=== PATIENT | female | born 1935 | race Caucasian/White ===

== ENCOUNTER → 2016-12-01 | Outpatient (REF) | payer MEDICARE, MEDICAID ==
[~2016-12-01] MED LIST: /PANT40TA OR; /PREG50CA PO; /WARF25TA PO; ACET-654 PO; ANASTROZOLE PO; ARIM1TAB4 PO; CALCI50TA PO; DOCU10ELUD PO; MECL25TA2 OR; METAPOW PO; PERCOCET PO; VITMTA PO; WARF5VL PO; XGEVINJ INJ; [UNRECOGNIZED DRUG - OTHER]
== END ==
LOC: M LAB REF 16:36
PROVIDERS: ATTEND Internal Medicine Medical Oncology
DX: C50.812 Malignant neoplasm of overlapping sites of left female breast (principal); C79.51 Secondary malignant neoplasm of bone

== ENCOUNTER → 2016-12-09 | Outpatient (CLI) | payer MEDICARE, MEDICAID ==
[~2016-12-09] MED LIST changes: +GASTROGRAFIN SOLUTION 30ML (Q9963) As Ordered ONE; +ISOVUE-370 76% 100ML VIAL (Q9967) As Ordered ONE
--- NOTE | 2016-12-09 19:16 | REP ---
CT CHEST WITH IV CONTRAST: CT chest was performed with the intravenous administration of 100 mL of Isovue-370. Sagittal and coronal reconstruction images are performed. COMPARISON: 10/07/2013. There are 3 cm nodular opacities in the left lower lobe which are stable. No new suspicious nodules are seen in either lung. Pleural thickening superiorly on the right, posterolaterally is stable. No suspicious adenopathy is seen in the mediastinal or hilar regions, nor in the axillary regions. There is no thoracic aortic aneurysm with mild scattered atherosclerotic calcification present. The heart is not significantly enlarged. There is no pleural or pericardial effusion. 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 Diffusely sclerotic right scapula and sclerotic changes in the right 5th, 6th posterior ribs and the posterior right 5th and 6th ribs is all unchanged. IMPRESSION: Stable CT exam with no new adenopathy or other evidence of metastatic disease. Signed by Hi Otero MD 12/09/2016 08:39 P
--- NOTE | 2016-12-09 19:42 | REP ---
CT ABDOMEN AND PELVIS WITH AND WITHOUT IV CONTRAST: TECHNIQUE: Axial noncontrast images through the abdomen followed by contrast-enhanced images through the abdomen and pelvis using 100 mL Isovue 370 intravenous contrast material, with coronal and sagittal reformations. The liver demonstrates a 1.4 cm cyst near the gallbladder fossa. The patient has had a cholecystectomy and there is prominent common bile duct as would be expected postsurgically in a patient of this age. No definite calculus is seen in the common bile duct. The maximum diameter of the common bile duct is approximately 1.5 cm and it appears to taper gradually as it courses distally to the ampulla of Vater. The spleen and left adrenal are unremarkable. The right adrenal demonstrates two nodules, one superiorly and one inferiorly which are unchanged since the prior CT of 09/22/2014 consistent with adenomas. The pancreas demonstrates no mass. The kidneys demonstrate no mass and no hydronephrosis or nephrolithiasis. Mild atherosclerotic calcifications are seen of the abdominal aorta without aneurysm. There is no significant adenopathy in the abdomen or pelvis. There is no free air or free fluid. There is no bowel wall thickening. There is diverticulosis of the colon without evidence of acute diverticulitis. No pelvic mass is seen. The uterus and ovaries are grossly unremarkable. The urinary bladder is mildly distended and appears unremarkable. There are degenerative changes of the spine without definite suspicious osseous abnormality. Metallic prostheses are noted of bilateral hips. IMPRESSION: Status post cholecystectomy with prominent caliber of biliary system. Liver cyst. Chronic diverticulosis. Two right adrenal adenomas are stable. No new mass or adenopathy. No free fluid. Signed by Hi Otero MD 12/09/2016 08:39 P
== END ==
LOC: M RAD 15:14
PROVIDERS: ATTEND Internal Medicine Medical Oncology
DX: C50.919 Malignant neoplasm of unspecified site of unspecified female breast (principal)
CPT/HCPCS: 71260; 74178; Q9963; Q9967

== ENCOUNTER → 2017-04-24 | Outpatient (REF) | payer MEDICARE, MEDICAID ==
[~2017-04-24] MED LIST changes: -GASTROGRAFIN SOLUTION 30ML (Q9963) As Ordered ONE; -ISOVUE-370 76% 100ML VIAL (Q9967) As Ordered ONE
== END ==
LOC: M LAB REF 18:37
PROVIDERS: ATTEND Internal Medicine Medical Oncology
DX: C50.919 Malignant neoplasm of unspecified site of unspecified female breast (principal)

== ENCOUNTER → 2017-09-14 | Outpatient (REF) | payer MEDICARE, MEDICAID | LOC: M LAB REF 15:37 | PROVIDERS: ATTEND Internal Medicine Medical Oncology | DX: C50.919 Malignant neoplasm of unspecified site of unspecified female breast (principal) ==

== ENCOUNTER → 2018-01-30 | Outpatient (CLI) | payer MEDICARE, MEDICAID | LOC: M PLARAD 08:45 | DX: C50.812 Malignant neoplasm of overlapping sites of left female breast (principal); C79.51 Secondary malignant neoplasm of bone | CPT/HCPCS: 78815 ==

== ENCOUNTER → 2019-02-06 | Outpatient (CLI) | payer MEDICARE, MEDICAID ==
[~2019-02-06] MED LIST changes: -/PANT40TA OR; -/PREG50CA PO; -/WARF25TA PO; +AMLO10TA5 PO; +AMLO2.5T3 PO; +AMLO25TA PO; +ANAS1TAB2 PO; +CALC1CHW PO; +CALCCHW4 PO; +COUM1TAB18 PO; -DOCU10ELUD PO; +DOCU5LIQ PO; +LYRI50CA PO; +OXYC1TAB23 PO; +PANT40TA3 PO; -PERCOCET PO; +PROT1TAB2 OR
--- NOTE | 2019-02-08 10:11 | REP ---
PET/CT: History: Restaging exam. History of metastatic breast carcinoma diagnosed in the year 1999. Comparisons: Comparison PET-CT study is from January 30, 2018. There is a comparison PET-CT study from January 14, 2016 as well. TECHNIQUE: 50 minutes following the intravenous injection of a 8.20 mCi dose of F-18 FDG, three-dimensional PET scintigraphy is acquired from the skull base to the proximal thighs. Triplanar noncontrast CT scanning is acquired through the same anatomic range for attenuation correction, and image registration with scan parameters optimized to minimize radiation exposure to the patient. PET scintigraphy and CT datasets were fused and displayed on a workstation with multiplanar and projection display capability. PET/CT Findings: Head and neck soft tissues remain unremarkable. No abnormal hypermetabolic uptake is seen. 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 There is no abnormal hypermetabolic uptake seen within the chest. In the abdomen and pelvis, there is normal distribution of tracer. There is persistent hypermetabolic uptake along a ventral hernia repair in a linear fashion which is essentially unchanged from multiple previous exams consistent with some degree of chronic inflammation. Maximum standard uptake value here is 12.2. This is unchanged as well having measured 12.6 and 2015 and 12.2 and 2017. Exam is otherwise unremarkable. Impression: No new abnormal hypermetabolic uptake. Persistent uptake at the site of ventral hernia repair in the anterior abdominal wall unchanged since the 2015 prior study, most likely some degree of chronic inflammatory change. Electronically Signed by Sebastian Rehman MD 02/08/2019 10:40 A
== END ==
LOC: M PLARAD 11:18
PROVIDERS: ATTEND Internal Medicine Hematology & Oncology
DX: C50.812 Malignant neoplasm of overlapping sites of left female breast (principal)
CPT/HCPCS: 78815; A9552

== ENCOUNTER → 2020-07-21 | Outpatient (CLI) | payer MEDICARE, MEDICAID ==
[~2020-07-21] MED LIST changes: -AMLO10TA5 PO; +AMLO1TAB25 PO; +PANT40TA29 PO; -PANT40TA3 PO
[2020-07-21 13:11] VITALS: BP 122/82
--- NOTE | 2020-07-24 14:10 | REP ---
STEREOTACTIC LEFT BREAST BIOPSY The procedure was performed under the general supervision of Dr. Rehman. HISTORY: The patient has a history of a left breast mass seen on a previous mammogram from [facility] performed on 04/30/2020. The risks and benefits of the procedure were explained to the patient and informed consent was obtained. PROCEDURE: A caudocranial approach was utilized. The mass was localized using stereotactic mammographic guidance. The skin was prepped and draped in a sterile fashion. 1% Lidocaine was used as a local anesthetic. Using mammographic guidance, a 10-gauge suction-assisted Mammotome needle was inserted and 10 core biopsy samples were obtained. A marker clip (HydroMARK 3) was inserted at the biopsy site. The patient tolerated the procedure well and there were no immediate complications. After the appropriate amount of monitored convalescence, the patient was discharged from the department. ERMA
--- NOTE | 2020-07-24 14:12 | REP ---
SPECIMEN RADIOGRAPHY LEFT BREAST: 2-VIEWS HISTORY: Stereotactic needle biopsy for asymmetric density, left breast. No microcalcifications in vivo. COMPARISON MAMMOGRAPHY: 04/30/2020. FINDINGS: Specimen radiography shows no microcalcifications or other distinct features. No microcalcifications were expected. IMPRESSION: Specimen radiography left breast post stereo. MTDD
--- NOTE | 2020-07-24 14:13 | REP ---
DIGITAL DIAGNOSTIC UNILATERAL LEFT BREAST MAMMOGRAPHY: 2-VIEWS HISTORY: Marker clip placement views. Stereotactic needle biopsy. COMPARISON MAMMOGRAPHY: 04/30/2020. FINDINGS: Craniocaudal and mediolateral views demonstrate the needle biopsy marker clip within the asymmetric density in the left breast centrally. There is some postbiopsy soft tissue swelling medial and inferior to the clip. IMPRESSION: Needle biopsy marker clip in good position. MTDD
== END ==
LOC: M WHCPRO 10:38
PROVIDERS: ATTEND Internal Medicine Hematology & Oncology
DX: D48.62 Neoplasm of uncertain behavior of left breast (principal)

== ENCOUNTER → 2021-05-13 | Outpatient (CLI) | payer MEDICARE, MEDICAID | LOC: M LABSMTC 13:44 | PROVIDERS: ATTEND Pediatrics | DX: Z20.822 Contact with and (suspected) exposure to COVID-19 (principal) ==

== ENCOUNTER → 2021-05-17 | Outpatient (CLI) | payer MEDICARE | LOC: M PLARAD 15:17 | PROVIDERS: ATTEND Internal Medicine Hematology & Oncology | DX: C50.912 Malignant neoplasm of unspecified site of left female breast (principal); C79.51 Secondary malignant neoplasm of bone; C50.812 Malignant neoplasm of overlapping sites of left female breast; R59.0 Localized enlarged lymph nodes | CPT/HCPCS: 78815; A9552 ==

== ENCOUNTER → 2023-02-22 | Outpatient (CLI) | payer MEDICARE, MEDICAID | LOC: M PLARAD 11:35 | PROVIDERS: ATTEND Internal Medicine Hematology & Oncology | DX: C50.912 Malignant neoplasm of unspecified site of left female breast (principal); C79.51 Secondary malignant neoplasm of bone; U07.1 COVID-19; C50.812 Malignant neoplasm of overlapping sites of left female breast; K21.9 Gastro-esophageal reflux disease without esophagitis; M25.561 Pain in right knee; M81.0 Age-related osteoporosis without current pathological fracture; S72.302A Unspecified fracture of shaft of left femur, initial encounter for closed fracture; S92.252A Displaced fracture of navicular [scaphoid] of left foot, initial encounter for closed fracture; X58.XXXA Exposure to other specified factors, initial encounter; Y92.89 Other specified places as the place of occurrence of the external cause; Y93.89 Activity, other specified; Y99.8 Other external cause status | CPT/HCPCS: 78815; A9552 ==

== ENCOUNTER → 2023-07-17 | Outpatient (REF) | payer MEDICARE, MEDICAID ==
[2023-07-17 18:07] LABS: HEMATOCRIT 43.1 % (36.0-47.0); HEMOGLOBIN 13.8 g/dl (12.0-15.5); MEAN CORPUSCULAR VOLUME 93.7 fl (80.0-96.0); PLATELET COUNT, AUTOMATED 230 10^3/uL (150-450); WHITE BLOOD COUNT 6.5 10^3/uL (4.0-10.0)
[2023-07-17 18:53] LABS: IRON (FE) 56 UG/DL (50-170)
[2023-07-17 19:25] LABS: ALBUMIN 3.3 G/DL (3.2-5.2); ALKALINE PHOSPHATASE 114 U/L (46-116); ALT/SGPT 18 U/L (7.0-40); AST/SGOT 17 U/L (<34); BILIRUBIN,TOTAL 0.4 MG/DL (0.3-1.2); BLOOD UREA NITROGEN 14 MG/DL (9-23); CALCIUM LEVEL 9.3 MG/DL (8.3-10.6); CARBON DIOXIDE LEVEL 32 MMOL/L (20-31); CHLORIDE LEVEL 105 MMOL/L (98-107); CREATININE FOR GFR 0.76 MG/DL (0.55-1.30); FREE T4 0.91 NG/DL (0.89-1.76); GLOMERULAR FILTRATION RATE > 60.0 (>32); GLUCOSE, FASTING 83 MG/DL (74-106); MAGNESIUM LEVEL 2.1 MG/DL (1.8-2.4); POTASSIUM SERUM 4.2 MMOL/L (3.5-5.1); SODIUM LEVEL 142 MMOL/L (136-145); THYROID STIMULATING HORMONE 3.529 uIU/ML (0.55-4.78); TOTAL PROTEIN 6.3 G/DL (5.7-8.2)
== END ==
LOC: M SFHCCLAY 13:29
PROVIDERS: ATTEND Family Medicine
DX: I10 Essential (primary) hypertension (principal); K21.9 Gastro-esophageal reflux disease without esophagitis; D64.9 Anemia, unspecified; R42 Dizziness and giddiness

== ENCOUNTER → 2023-08-11 | Outpatient (CLI) | payer MEDICARE, MEDICAID | LOC: M SLEEP HO 10:51 | PROVIDERS: ATTEND Family Medicine | DX: R53.82 Chronic fatigue, unspecified (principal) ==

== ENCOUNTER → 2024-03-08 | Outpatient (CLI) | payer MEDICARE, MEDICAID ==
[~2024-03-08] MED LIST changes: +E-Z-GAS II EFFERVESCENT PACKET (SODIUM BICARB./CITRIC ACID/SIMETHICONE) As Ordered ONE; +E-Z-HD 98% w/w 340GM SUSP BTL As Ordered ONE; +E-Z-PAQUE 96% w/w SUSP 176GM BTL As Ordered ONE
== END ==
LOC: M RAD 09:14
PROVIDERS: ATTEND Family Medicine
DX: R13.19 Other dysphagia (principal)

== ENCOUNTER → 2024-06-11 | Outpatient (REF) | payer MEDICARE, MEDICAID ==
[~2024-06-11] MED LIST changes: -E-Z-GAS II EFFERVESCENT PACKET (SODIUM BICARB./CITRIC ACID/SIMETHICONE) As Ordered ONE; -E-Z-HD 98% w/w 340GM SUSP BTL As Ordered ONE; -E-Z-PAQUE 96% w/w SUSP 176GM BTL As Ordered ONE
[2024-06-11 17:35] LABS: HEMATOCRIT 32.5 % (36.0-47.0); HEMOGLOBIN 9.9 g/dl (12.0-15.5); MEAN CORPUSCULAR HEMOGLOBIN 28.3 pg (27.0-33.0); MEAN CORPUSCULAR HGB CONC 30.5 g/dl (32.0-36.5); MEAN CORPUSCULAR VOLUME 92.9 fl (80.0-96.0); PLATELET COUNT, AUTOMATED 393 10^3/uL (150-450); WHITE BLOOD COUNT 6.9 10^3/uL (4.0-10.0)
[2024-06-11 17:53] LABS: ALBUMIN 2.9 G/DL (3.2-5.2); ALKALINE PHOSPHATASE 90 U/L (46-116); ALT/SGPT 22 U/L (7.0-40); AST/SGOT 20 U/L (<34); BILIRUBIN,TOTAL 0.4 MG/DL (0.3-1.2); BLOOD UREA NITROGEN 15 MG/DL (9-23); CALCIUM LEVEL 8.9 MG/DL (8.3-10.6); CARBON DIOXIDE LEVEL 30 MMOL/L (20-31); CHLORIDE LEVEL 107 MMOL/L (98-107); CREATININE FOR GFR 0.71 MG/DL (0.55-1.30); FOLATE > 24.00 NG/ML (>5.4); GLOMERULAR FILTRATION RATE > 60.0 (>32); GLUCOSE, FASTING 102 MG/DL (74-106); IRON (FE) 12 UG/DL (50-170); POTASSIUM SERUM 4.9 MMOL/L (3.5-5.1); SODIUM LEVEL 141 MMOL/L (136-145); VITAMIN B12 LEVEL 1206 PG/ML (211-911)
== END ==
LOC: M SFHCCLAY 13:32
PROVIDERS: ATTEND Family Medicine
DX: K92.2 Gastrointestinal hemorrhage, unspecified (principal); D64.9 Anemia, unspecified

== ENCOUNTER → 2024-07-16 | Outpatient (REF) | payer MEDICARE, MEDICAID ==
[2024-07-16 17:36] LABS: HEMATOCRIT 39.8 % (36.0-47.0); HEMOGLOBIN 12.2 g/dl (12.0-15.5); MEAN CORPUSCULAR HEMOGLOBIN 27.7 pg (27.0-33.0); MEAN CORPUSCULAR HGB CONC 30.7 g/dl (32.0-36.5); MEAN CORPUSCULAR VOLUME 90.2 fl (80.0-96.0); PLATELET COUNT, AUTOMATED 270 10^3/uL (150-450); RED BLOOD COUNT 4.41 10^6/uL (4.00-5.40); WHITE BLOOD COUNT 6.4 10^3/uL (4.0-10.0)
== END ==
LOC: M SFHCCLAY 09:35
PROVIDERS: ATTEND Family Medicine
DX: D64.9 Anemia, unspecified (principal)

== ENCOUNTER → 2024-09-17 | Outpatient (REF) | payer MEDICARE, MEDICAID ==
[~2024-09-17] MED LIST changes: +BIMA01SOL OU; +CYAN500T20 PO; +OYST1TAB5 PO; +TIMO5DRO5 OS; +VESI5TAB2 PO; +[UNRECOGNIZED DRUG - CODE] IM
[2024-09-17 11:57] LABS: APPEARANCE, URINE CLEAR (CLEAR); BACTERIA, URINE AUTO NEGATIVE (NEGATIVE); BILIRUBIN, URINE AUTO NEGATIVE (NEGATIVE); BLOOD, URINE BLOOD NEGATIVE (NEGATIVE); COLOR, URINE YELLOW (YELLOW); GLUCOSE, URINE (UA) AUTO NEGATIVE (NEGATIVE); KETONE, URINE AUTO NEGATIVE (NEGATIVE); LEUKOCYTE ESTERASE, URINE AUTO TRACE (NEGATIVE); MUCUS, URINE SMALL (NEGATIVE); NITRITE, URINE AUTO NEGATIVE (NEGATIVE); PROTEIN, URINE AUTO NEGATIVE (NEGATIVE); RBC, URINE AUTO 2 /HPF (0-3); SPECIFIC GRAVITY URINE AUTO 1.013 (1.002-1.035); SQUAMOUS EPITHELIAL CELL UR AU 1 /HPF (0-6); UROBILINOGEN, URINE AUTO 0.2 mg/dL (0.0-2.0); WBC, URINE AUTO 1 /HPF (0-3)
== END ==
LOC: M SFHCCLAY 09:34
PROVIDERS: ATTEND Family Medicine
DX: N39.490 Overflow incontinence (principal)

== ENCOUNTER 2024-09-26 11:55 | Day surgery (SDC) | payer MEDICARE, MEDICAID ==
[~2024-09-26] VITALS: Ht 162.6 cm; Wt 83.9 kg
[2024-09-26 14:06] VITALS: TEMP 98.1
[2024-09-26 14:25] VITALS: BP 161/81; O2SAT 98
== END 2024-09-26 14:43 | disposition home or self-care (01) ==
LOC: M OPP 11:55
PROVIDERS: ATTEND Internal Medicine Gastroenterology
DX: K31.7 Polyp of stomach and duodenum (principal); K22.2 Esophageal obstruction; Q39.4 Esophageal web; I10 Essential (primary) hypertension; K21.9 Gastro-esophageal reflux disease without esophagitis; M19.90 Unspecified osteoarthritis, unspecified site; H40.9 Unspecified glaucoma; H35.30 Unspecified macular degeneration; Z85.3 Personal history of malignant neoplasm of breast; Z92.3 Personal history of irradiation; Z79.899 Other long term (current) drug therapy; Z80.0 Family history of malignant neoplasm of digestive organs; Z80.3 Family history of malignant neoplasm of breast

== ENCOUNTER → 2024-10-29 | Outpatient (REF) | payer MEDICARE, MEDICAID ==
[2024-10-29 16:56] LABS: BASO % 0.5 % (0.0-1.0); EOS # 0.2 10^3/uL (0.0-0.5); EOS % 2.6 % (0.0-3.0); HEMATOCRIT 44.6 % (36.0-47.0); HEMOGLOBIN 14.1 g/dl (12.0-15.5); LYMPH # 1.4 10^3/uL (1.5-5.0); LYMPH % 22.5 % (24.0-44.0); MEAN CORPUSCULAR HEMOGLOBIN 28.8 pg (27.0-33.0); MEAN CORPUSCULAR HGB CONC 31.6 g/dl (32.0-36.5); MONO # 0.8 10^3/uL (0.0-0.8); NEUTROPHILS # 3.8 10^3/uL (1.5-8.5); NEUTROPHILS % 61.1 % (36.0-66.0); PLATELET COUNT, AUTOMATED 210 10^3/uL (150-450); WHITE BLOOD COUNT 6.2 10^3/uL (4.0-10.0)
[2024-10-29 17:02] LABS: FREE T4 1.09 NG/DL (0.89-1.76); IRON (FE) 110 UG/DL (50-170); THYROID STIMULATING HORMONE 2.362 uIU/ML (0.55-4.78); TOTAL IRON BINDING CAPACITY 344 UG/DL (250-425)
[2024-10-29 17:03] LABS: ALBUMIN 3.2 G/DL (3.2-5.2); ALKALINE PHOSPHATASE 112 U/L (35-104); ALT/SGPT 18 U/L (7.0-40); AST/SGOT 18 U/L (<34); BILIRUBIN,TOTAL 0.6 MG/DL (0.3-1.2); BLOOD UREA NITROGEN 23 MG/DL (9-23); CARBON DIOXIDE LEVEL 32 MMOL/L (20-31); CHLORIDE LEVEL 109 MMOL/L (98-107); FERRITIN 29.5 NG/ML (7.3-270.7); GLOMERULAR FILTRATION RATE > 60.0 (>32); GLUCOSE, FASTING 103 MG/DL (74-106); POTASSIUM SERUM 3.8 MMOL/L (3.5-5.1); SODIUM LEVEL 145 MMOL/L (136-145); TOTAL PROTEIN 6.4 G/DL (5.7-8.2)
[2024-10-29 17:04] LABS: TOTAL 25(OH) VITAMIN D 55.8 NG/ML (20.0-100.0)
[2024-10-29 17:05] LABS: VITAMIN B12 LEVEL 1994 PG/ML (211-911)
[2024-10-29 17:22] LABS: CA15-3 ANTIGEN 37.4 U/ML (<32.4)
== END ==
LOC: M LABDRAWC 16:13
PROVIDERS: ATTEND Internal Medicine Hematology & Oncology
DX: C50.912 Malignant neoplasm of unspecified site of left female breast (principal); C79.51 Secondary malignant neoplasm of bone; Z78.0 Asymptomatic menopausal state; U07.1 COVID-19; C50.812 Malignant neoplasm of overlapping sites of left female breast; I10 Essential (primary) hypertension; K21.9 Gastro-esophageal reflux disease without esophagitis; M25.561 Pain in right knee; M81.0 Age-related osteoporosis without current pathological fracture; S72.302A Unspecified fracture of shaft of left femur, initial encounter for closed fracture; S92.252A Displaced fracture of navicular [scaphoid] of left foot, initial encounter for closed fracture; X58.XXXA Exposure to other specified factors, initial encounter; Y92.9 Unspecified place or not applicable; Y93.9 Activity, unspecified; Y99.9 Unspecified external cause status

== ENCOUNTER → 2025-02-06 | Outpatient (REF) | payer MEDICARE, MEDICAID ==
[2025-02-06 18:35] LABS: HEMATOCRIT 44.2 % (36.0-47.0); HEMOGLOBIN 14.2 g/dl (12.0-15.5); MEAN CORPUSCULAR HEMOGLOBIN 30.2 pg (27.0-33.0); MEAN CORPUSCULAR HGB CONC 32.1 g/dl (32.0-36.5); PLATELET COUNT, AUTOMATED 256 10^3/uL (150-450); WHITE BLOOD COUNT 7.8 10^3/uL (4.0-10.0)
[2025-02-06 18:44] LABS: ALBUMIN 3.1 G/DL (3.2-5.2); BILIRUBIN,TOTAL 0.5 MG/DL (0.3-1.2); CALCIUM LEVEL 9.3 MG/DL (8.3-10.6); CREATININE FOR GFR 0.72 MG/DL (0.55-1.30); GLOMERULAR FILTRATION RATE 79.9 (>32); POTASSIUM SERUM 4.4 MMOL/L (3.5-5.1); TOTAL PROTEIN 6.3 G/DL (5.7-8.2)
== END ==
LOC: M SFHCCLAY 11:33
PROVIDERS: ATTEND Family Medicine
DX: I10 Essential (primary) hypertension (principal); D64.9 Anemia, unspecified; K21.9 Gastro-esophageal reflux disease without esophagitis

== ENCOUNTER → 2025-08-19 | Outpatient (CLI) | payer MEDICARE, MEDICAID | LOC: M CLY 12:04 | PROVIDERS: ATTEND Family Medicine | DX: K13.0 Diseases of lips (principal); R68.84 Jaw pain; Z53.9 Procedure and treatment not carried out, unspecified reason ==